=== PATIENT | female | born 1985 | race Caucasian/White ===

== ENCOUNTER 2019-04-17 15:13 | Emergency (ER) | payer SELFPAY ==
[~2019-04-17] VITALS: Ht 170.2 cm; Wt 101.6 kg
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
--- NOTE | 2019-04-17 15:27 | NUR ---
Jaime GORDON PA-C IS AT THE BEDSIDE EVALUATING THE PT.
[2019-04-17 16:04] VITALS: BP 157/92
== END 2019-04-17 15:42 | disposition home or self-care (01) ==
LOC: ER 15:13
DX: M54.2 Cervicalgia (principal); M54.5 Low back pain; M54.6 Pain in thoracic spine; K04.7 Periapical abscess without sinus; G89.29 Other chronic pain; V49.49XA Driver injured in collision with other motor vehicles in traffic accident, initial encounter; Y93.89 Activity, other specified; Y92.413 State road as the place of occurrence of the external cause; Y99.8 Other external cause status

== ENCOUNTER 2019-09-17 10:04 | Emergency (ER) | payer SELFPAY ==
[~2019-09-17] VITALS: Ht 170.2 cm; Wt 97.5 kg
[2019-09-17 11:24] VITALS: BP 135/89
--- NOTE | 2019-09-17 11:56 | NUR ---
Patient discharged to home in stable condition. Written and verbal after care instructions given. Patient verbalizes understanding of instruction.
== END 2019-09-17 11:56 | disposition home or self-care (01) ==
LOC: ER 10:08
DX: M54.5 Low back pain (principal); M54.2 Cervicalgia; R07.81 Pleurodynia; V49.49XA Driver injured in collision with other motor vehicles in traffic accident, initial encounter; Y93.89 Activity, other specified; Y92.413 State road as the place of occurrence of the external cause; Y99.8 Other external cause status